=== PATIENT | male | born 1945 | race Caucasian/White ===

== ENCOUNTER → 2016-06-28 | Outpatient (CLI) | payer OTHER ==
[~2016-06-28] MED LIST: ACYC-251 PO; ASPCH81X PO; CHOL1000 PO; CHOL100010 PO; GLUCPOW41 PO; GLUCTAB7 PO; LORA-741 PO; LPR25 PO; METO25TA56 PO; OMEG10002 PO; OMEG10007 PO; WARF5TAB90 PO
[2016-06-28 13:20] LABS: ALT/SGPT 28 U/L (12-78); AST/SGOT 23 U/L (15-37); BLOOD UREA NITROGEN 19 mg/dl (7-18); BUN/CREATININE RATIO 19.2 (10-20); CALCIUM 9.1 mg/dl (8.5-10.1); CARBON DIOXIDE 28 mmol/L (21-32); CHLORIDE 106 mmol/L (98-107); CHOLESTEROL 161 mg/dl (0-200); CHOLESTEROL/HDL RATIO 2.9; GLUCOSE 93 mg/dl (70-99); HDL CHOLESTEROL 55 mg/dl; POTASSIUM 4.1 mmol/L (3.5-5.1); SODIUM 141 mmol/L (136-145)
[2016-06-28 13:27] LABS: FERRITIN 97.1 ng/ml (8.0-388.0); LDL CHOLESTEROL CALCULATED 93 mg/dl; TRIGLYCERIDES 64 mg/dl (0-150); VERY LOW DENSITY LIPOPROT CALC 13 mg/dl
--- NOTE | 2016-07-03 09:59 | CODING QUERY MEDICAL NECESSITY ---
SUPPORTING DIAGNOSIS NEEDED A supporting diagnosis is required for the test/procedure performed on this patient in order for us to be reimbursed by the patient's insurance. Please provide a supporting diagnosis for the following test/procedure listed below next to the test name along with your signature. *If there is no additional diagnosis for this patient that would support the following test/procedure please document that below next to the test/procedure. Test(s)/Procedure(s) that require a supporting diagnosis: * VITAMIN B-12 LEVEL DIAGNOSIS: * DOS: 06/28/16 Provider Signature: Date: Thank you Moni Leigh Health Information Management Once completed, please kindly fax back to [phone] For questions please call [phone]
== END | disposition home or self-care (01) ==
LOC: C.LAB1850 11:48
PROVIDERS: ATTEND Internal Medicine
DX: E78.5 Hyperlipidemia, unspecified (principal); E83.119 Hemochromatosis, unspecified; I48.91 Unspecified atrial fibrillation; Z12.5 Encounter for screening for malignant neoplasm of prostate; R94.02 Abnormal brain scan; R00.2 Palpitations

== ENCOUNTER → 2017-01-30 | Outpatient (CLI) | payer OTHER ==
--- NOTE | 2017-01-30 15:02 | DIAGNOSTIC IMAGING REPORT ---
RIGHT WRIST 4 VIEWS HISTORY: ACUTE WRIST PAIN Right COMPARISON: None. FINDINGS: There is no fracture or dislocation. Mild soft tissue swelling. Chondrocalcinosis. Severe cartilage space narrowing with [id number] articulation at the radiocarpal joint consistent with degenerative change. There is scapholunate dissociation. A few intra-articular loose bodies are likely due to chronic change or old injury. The largest measures 9 mm adjacent to the distal radius. IMPRESSION: No acute fracture or dislocation within the right wrist. Mild soft tissue swelling. Chronic/degenerative changes described above. Electronically signed by: Bertram Fitzpatrick M.D. 01/30/2017 3:00 PM Dictated Date/Time: 01/30/2017 2:58 PM
--- NOTE | 2017-01-30 15:10 | DIAGNOSTIC IMAGING REPORT ---
LEFT WRIST MIN 3 VIEWS ROUTINE HISTORY: 71 years-old Male ACUTE WRIST PAIN acute left-sided wrist pain and weakness without reported trauma. COMPARISON: Right wrist radiographs of same day TECHNIQUE: 3 views of the left wrist. FINDINGS: Widening of the scapholunate interval, 5 mm is noted with severe radiocarpal joint space narrowing. 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 Subcortical cystic changes are seen within the triquetrum and ulnar styloid. The bones are mildly demineralized. Chondrocalcinosis seen within the distribution of the TFCC. There is mild soft tissue signed about the wrist without acute fracture or dislocation identified. IMPRESSION: 1. Mild soft tissue swelling about the wrist without acute fracture or dislocation. 2. 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 3. Chondrocalcinosis of the TFCC. The above report was generated using voice recognition software. It may contain grammatical, syntax or spelling errors. Electronically signed by: Munir Otoole M.D. 01/30/2017 3:08 PM Dictated Date/Time: 01/30/2017 3:04 PM
== END | disposition home or self-care (01) ==
LOC: C.RAD1850 14:37
PROVIDERS: ATTEND Physician Assistant
DX: M25.531 Pain in right wrist (principal); M19.032 Primary osteoarthritis, left wrist; M11.232 Other chondrocalcinosis, left wrist

== ENCOUNTER 2017-02-05 23:07 | Emergency (ER) | payer OTHER ==
[~2017-02-05] VITALS: Ht 180.3 cm; Wt 81.4 kg
[~2017-02-05 23:07] MED LIST changes: -CHOL1000 PO; -GLUCTAB7 PO; -METO25TA56 PO; -OMEG10002 PO; -WARF5TAB90 PO
[2017-02-05 23:10] VITALS: TEMP 36.6; Ht 180.3 cm; Wt 81.4 kg
[2017-02-05] MEDS ORDERED: METOPROLOL TARTRATE 1 MG/ML VIAL IV STA (23:18)
[2017-02-05] MEDS ORDERED: SODIUM CHLORIDE 0.9% 1000ML 1,000 ML IV STA (23:18)
[2017-02-05] MEDS ORDERED: WARF5TAB90 PO (23:23)
[2017-02-05] MEDS ORDERED: CHOL1000 PO (23:23)
[2017-02-05] MEDS ORDERED: ACYC-251 PO (23:24)
[2017-02-05] MEDS ORDERED: METO25TA56 PO (23:25)
[2017-02-05] MEDS ORDERED: OMEG10002 PO (23:26)
[2017-02-05] MEDS ORDERED: GLUCTAB7 PO (23:26)
[2017-02-05 23:35] LABS: BASO % 0.3 %; BASO ABS # 0.02 K/uL (0-0.2); COMPLETE YES; EOS % 2.3 %; HEMATOCRIT 41.4 % (42-52); IG% 0.3 %; LYMPH % 31.5 %; LYMPH ABS # 2.07 K/uL (1.2-3.4); MEAN CELL VOLUME 87.2 fL (80-100); MEAN CORPUSCULAR HEMOGLOBIN 31.2 pg (25-34); MEAN CORPUSCULAR HGB CONC 35.7 g/dl (32-36); MEAN PLATELET VOLUME 10.7 fL (7.4-10.4); MONO % 8.1 %; NEUT % 57.5 %; PLATELET COUNT 117 K/uL (130-400); RED BLOOD COUNT 4.75 M/uL (4.7-6.1); WHITE BLOOD COUNT 6.57 K/uL (4.8-10.8)
[2017-02-05 23:51] LABS: INR 2.2 (0.9-1.1); PARTIAL THROMBOPLASTIN RATIO 1.5; PROTHROMBIN TIME (PATIENT) 24.8 SECONDS (9.0-12.0)
[2017-02-05 23:59] LABS: BLOOD UREA NITROGEN 27 mg/dl (7-18); BUN/CREATININE RATIO 29.1 (10-20); CALCIUM 8.7 mg/dl (8.5-10.1); CARBON DIOXIDE 27 mmol/L (21-32); CHLORIDE 109 mmol/L (98-107); CREATININE 0.93 mg/dl (0.60-1.40); GLUCOSE 93 mg/dl (70-99); MAGNESIUM 2.4 mg/dl (1.8-2.4); POTASSIUM 3.9 mmol/L (3.5-5.1); SODIUM 143 mmol/L (136-145)
--- NOTE | 2017-02-06 00:36 | EMERGENCY ROOM VISIT NOTE ---
History Report prepared by Rachael: Ayaan Kapadia Under the Supervision of: Dr. Power Barfield M.D. First contact with patient: 23:13 Chief Complaint: IRREGULAR HEARTBEAT Stated Complaint: AFIB,HEART FLUTTER History of Present Illness The patient is a 71 year old male who presents to the Emergency Room with complaints of persistent chest palpitations beginning two hours ago. He has a history of similar symptoms, but states that his symptoms typically resolve on their own. He has a known history of atrial flutter for which he is on Metoprolol and Warfarin. The patient also complains of shortness of breath. He denies any chest pain, cough, diarrhea, urinary symptoms, or abdominal pain. Source of History: patient Onset: two hours ago Position: chest Quality: other (palpitations) Timing: other (persistent) Associated Symptoms: + SOB, No cough, No chest pain, No diarrhea, No urinary symptoms Review of Systems See HPI for pertinent positives & negatives. A total of 10 systems reviewed and were otherwise negative. Past Medical & Surgical Medical Problems: (1) ATRIAL FIBRILLATION (2) Atrial fibrillation with rapid ventricular response (3) No Known Active Medical Problems (4) Paroxysmal a-fib (5) Radiofrequency ablation operation for arrhythmia (6) s/p ablation Surgical Problems: (1) H/O cardiac radiofrequency ablation Family History Cancer Diabetes mellitus Hypertension Social History Smoking Status: Never Smoker Alcohol Use: none Drug Use: none Marital Status: Occupation Status: retired Current/Historical Medications Scheduled Acyclovir (Zovirax), 800 MG PO BID Cholecalciferol (Vitamin D3), 1,000 UNIT PO DAILY Mhojqzqmrgs-Qxyttkcnqxc-Dkk C- (Glucosamine Chondroitin), 1 TAB PO DAILY Metoprolol Tartrate (Lopressor) (Lopressor), 12.5 MG PO BID [place]-3 Fatty Acids (Fish Oil), 1,000 MG PO DAILY Warfarin Sodium (Coumadin), 5 MG PO DAILY Allergies Coded Allergies: No Known Allergies (Verified , 02/05/17) Physical Exam Vital Signs Date Time Temp Pulse Resp B/P (MAP) Pulse Ox O2 Delivery O2 Flow Rate FiO2 02/06/17 00:56 67 14 122/76 94 02/06/17 00:47 67 19 95 02/06/17 00:46 103/70 02/06/17 00:32 66 17 97 02/06/17 00:31 103/69 02/06/17 00:17 70 16 97 02/06/17 00:16 98/67 02/06/17 00:02 72 19 98 02/06/17 00:01 91/78 02/05/17 23:47 70 20 98 02/05/17 23:46 116/74 02/05/17 23:32 69 23 96 02/05/17 23:27 70 15 98 02/05/17 23:24 83 02/05/17 23:22 77 16 96 Room Air 02/05/17 23:21 150 98/71 02/05/17 23:20 146 02/05/17 23:10 36.6 155 16 113/76 96 Room Air Physical Exam GENERAL: Patient is well appearing and in no acute distress. HEENT: No acute trauma, normocephalic atraumatic, mucous membranes moist, no nasal congestion, no scleral icterus. NECK: No stridor, no adenopathy, no meningismus, trachea is midline. LUNGS: No dyspnea. Clear to auscultation and equal bilaterally. No wheeze, no rhonchi. HEART: Tachycardic rate. No murmurs, rubs, gallops appreciated. ABDOMEN: Soft, nontender, bowel sounds positive, no masses appreciated, no peritonitis. BACK: No midline tenderness, no CVA tenderness EXTREMITIES: Normal motion all extremities, no cyanosis, no edema. NEUROLOGIC: Alert and oriented, no acute motor or sensory deficits, no focal weakness, cranial nerves grossly intact. SKIN: No rash, no jaundice, no diaphoresis. Medical Decision & Procedures ER Provider Diagnostic Interpretation: X ray results are stated below per my interpretation: Chest: 1 view: No infiltrate, no effusion, normal cardiac border. Laboratory Results 02/05/17 23:25 Red Blood Count 4.75, Mean Corpuscular Volume 87.2, Mean Corpuscular Hemoglobin 31.2, Mean Corpuscular Hemoglobin Concent 35.7, Mean Platelet Volume 10.7, Neutrophils (%) (Auto) 57.5, Lymphocytes (%) (Auto) 31.5, Monocytes (%) (Auto) 8.1, Eosinophils (%) (Auto) 2.3, Basophils (%) (Auto) 0.3, Neutrophils # (Auto) 3.78, Lymphocytes # (Auto) 2.07, Monocytes # (Auto) 0.53, Eosinophils # (Auto) 0.15, Basophils # (Auto) 0.02 02/05/17 23:25 Test 02/05/17 23:25 White Blood Count 6.57 K/uL (4.8-10.8) Red Blood Count 4.75 M/uL (4.7-6.1) Hemoglobin 14.8 g/dL (14.0-18.0) Hematocrit 41.4 % (42-52) Mean Corpuscular Volume 87.2 fL (80-100) Mean Corpuscular Hemoglobin 31.2 pg (25-34) Mean Corpuscular Hemoglobin Concent 35.7 g/dl (32-36) Platelet Count 117 K/uL (130-400) Mean Platelet Volume 10.7 fL (7.4-10.4) Neutrophils (%) (Auto) 57.5 % Lymphocytes (%) (Auto) 31.5 % Monocytes (%) (Auto) 8.1 % Eosinophils (%) (Auto) 2.3 % Basophils (%) (Auto) 0.3 % Neutrophils # (Auto) 3.78 K/uL (1.4-6.5) Lymphocytes # (Auto) 2.07 K/uL (1.2-3.4) Monocytes # (Auto) 0.53 K/uL (0.11-0.59) Eosinophils # (Auto) 0.15 K/uL (0-0.5) Basophils # (Auto) 0.02 K/uL (0-0.2) RDW Standard Deviation 42.1 fL (36.4-46.3) RDW Coefficient of Variation 13.1 % (11.5-14.5) Immature Granulocyte % (Auto) 0.3 % Immature Granulocyte # (Auto) 0.02 K/uL (0.00-0.02) Prothrombin Time 24.8 SECONDS (9.0-12.0) Prothromb Time International Ratio 2.2 (0.9-1.1) Activated Partial Thromboplast Time 38.3 SECONDS (21.0-31.0) Partial Thromboplastin Ratio 1.5 Anion Gap 7.0 mmol/L (3-11) Est Creatinine Clear Calc Drug Dose 77.6 ml/min Estimated GFR () 95.4 Estimated GFR (Non- 82.3 BUN/Creatinine Ratio 29.1 (10-20) Calcium Level 8.7 mg/dl (8.5-10.1) Magnesium Level 2.4 mg/dl (1.8-2.4) Troponin I < 0.015 ng/ml (0-0.045) Thyroid Stimulating Hormone (TSH) 2.350 uIu/ml (0.300-4.500) Medications Administered Medications (Trade) Dose Ordered Sig/Aaron Route Start Time Stop Time Status Last Admin Dose Admin Sodium Chloride 1,000 ml @ 999 mls/hr Q1H1M STAT IV 02/05/17 23:18 02/06/17 00:18 DC 02/05/17 23:21 999 MLS/HR ECG Indication: palpitations Rate (beats per minute): 155 Rhythm: atrial flutter Findings: no acute ischemic change, no ectopy Change: Repeat ECG reveals a normal sinus rhythm with a rate of 69 bpm. No acute ischemia or ectopy seen. Changes are new compared to previous ECG. ED Course 2314: The patient was evaluated in room A12B. A complete history and physical exam was performed. 2318: Ordered Sodium Chloride 1000 ml @ 999 mls/hr, Lopressor 5 mg IV. 2337: I reassessed the patient. His heart rate has decreased to 70 after receiving IV fluids. He feels back to normal. 0025: Reevaluated the patient. He feels fine and would like to go home. Discussed results and discharge instructions: he verbalized understanding and agreement. The patient is ready for discharge. Medical Decision Differential: NSR, SVT, PACs, PVCs, Cardiac Dysrhythmia, Endocrine Dysfunction, Electrolyte/Metabolic Abnormality, Pulmonary Embolism, Infectious, GI, amongst other pathologies entertained. 71 yr old male arrives with acute onset tachycardia this evening. Already took extra dose metoprolol F[employer]DER. EKG consistent with Flutter vs SVT. Ordered Lopressor IV and NSS bolus, however prior to lopressor started he reverted to NSR. Symptoms resolved and patient feeling well. Labs with mild dehydration and elevated BUN normal Cr. He is quite active and may have just overdone it. HR in 60s-70s and SBP in 90s. Notes this is normal vitals for him. Will hold on further Metoprolol as he has already taken extra dose this evening. Long history of paroxysmal aflutter and I do not feel that he requires admission, especially given minimal intervention necessary this evening as well as already on anti-coagulation. Reviewed symptoms requiring RTED. 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 Medication Reconcilliation Current Medication List: was personally reviewed by me Blood Pressure Screening Patient's blood pressure: Normal blood pressure Blood pressure disposition: Did not require urgent referral Impression Primary Impression: Atrial flutter with rapid ventricular response Additional Impression: Dehydration Scribe Attestation The scribe's documentation has been prepared under my direction and personally reviewed by me in its entirety. I confirm that the note above accurately reflects all work, treatment, procedures, and medical decision making performed by me. Departure Information Dispostion Home / Self-Care Referrals Pro,Edward Vogt M.D. (PCP) Patient Instructions ED Paroxysmal Atrial Flutter, My [facility] Problem Qualifiers
[2017-02-06 00:56] VITALS: BP 122/76; PULSE 67; O2SAT 94
--- NOTE | 2017-02-06 06:38 | DIAGNOSTIC IMAGING REPORT ---
CHEST ONE VIEW PORTABLE CLINICAL HISTORY: Palpitations COMPARISON STUDY: 12/06/2015 FINDINGS: The cardiac and mediastinal contours are normal. There is no evidence of focal pulmonary consolidation. There is no evidence of failure. No pleural effusions are visualized.[ IMPRESSION: No active disease in the chest. Electronically signed by: Napoleon Parmar M.D. 02/06/2017 6:36 AM Dictated Date/Time: 02/06/2017 6:36 AM
== END 2017-02-06 01:04 | disposition home or self-care (01) ==
LOC: C.EDB 23:08 → C.EDA 02-06 01:04
DX: I48.92 Unspecified atrial flutter (principal); E86.0 Dehydration; I48.91 Unspecified atrial fibrillation; Z79.01 Long term (current) use of anticoagulants; Z79.899 Other long term (current) drug therapy; Z80.9 Family history of malignant neoplasm, unspecified; Z83.3 Family history of diabetes mellitus; Z82.49 Family history of ischemic heart disease and other diseases of the circulatory system

== ENCOUNTER → 2017-03-21 | Outpatient (CLI) | payer OTHER ==
[~2017-03-21] MED LIST changes: +ACYC-223 PO; -ACYC-251 PO; -ASPCH81X PO; +CHOL1000 PO; -CHOL100010 PO; -GLUCPOW41 PO; +GLUCTAB7 PO; -LORA-741 PO; -LPR25 PO; +METO25TA56 PO; +OMEG10002 PO; -OMEG10007 PO; +WARF5TAB90 PO
[2017-03-21 13:04] LABS: URINE APPEARANCE CLEAR (CLEAR); URINE BILIRUBIN NEG (NEG); URINE COLOR YELLOW; URINE EPITHELIAL CELL AUTO 0-5 /lpf (0-5); URINE NITRITE NEG (NEG); URINE SPECIFIC GRAVITY 1.016 (1.000-1.030); UROBILINOGEN NEG (NEG)
[2017-03-21 13:09] LABS: MANUAL MICROSCOPIC REQUIRED? NO; REVIEW REQ? NO
== END | disposition home or self-care (01) ==
LOC: C.LAB1850 11:33
PROVIDERS: ATTEND Internal Medicine Rheumatology
DX: R82.90 Unspecified abnormal findings in urine (principal); E83.118 Other hemochromatosis

== ENCOUNTER 2017-07-12 17:32 | Observation (INO) | payer OTHER ==
[~2017-07-12] VITALS: Ht 180.3 cm; Wt 84.1 kg
[2017-07-12] MEDS ORDERED: METOPROLOL TARTRATE 1 MG/ML VIAL IV STA ×3 (17:56→18:55)
[2017-07-12] MEDS ORDERED: SODIUM CHLORIDE 0.9% 1000ML 1,000 ML IV STA ×2 (17:56→18:55)
[2017-07-12 18:11] LABS: BASO % 0.1 %; BASO ABS # 0.01 K/uL (0-0.2); EOS % 1.8 %; EOS ABS # 0.14 K/uL (0-0.5); HEMATOCRIT 42.7 % (42-52); HEMOGLOBIN 15.6 g/dL (14.0-18.0); IG# 0.02 K/uL (0.00-0.02); LYMPH % 20.9 %; MEAN CELL VOLUME 86.4 fL (80-100); MEAN CORPUSCULAR HEMOGLOBIN 31.6 pg (25-34); MEAN CORPUSCULAR HGB CONC 36.5 g/dl (32-36); MEAN PLATELET VOLUME 11.2 fL (7.4-10.4); MONO % 10.7 %; MONO ABS # 0.82 K/uL (0.11-0.59); NEUT % 66.2 %; NEUT ABS # 5.08 K/uL (1.4-6.5); PLATELET COUNT 114 K/uL (130-400); RED CELL DISTRIBUTION WIDTH CV 12.5 % (11.5-14.5); RED CELL DISTRIBUTION WIDTH SD 39.8 fL (36.4-46.3); WHITE BLOOD COUNT 7.67 K/uL (4.8-10.8)
[2017-07-12] MEDS ORDERED: HYDR200T5 PO (18:23)
[2017-07-12] MEDS ORDERED: CLB/200 PO (18:23)
[2017-07-12 18:28] LABS: INR 1.8 (0.9-1.1); PTT PATIENT 32.9 SECONDS (21.0-31.0)
[2017-07-12 18:48] LABS: BLOOD UREA NITROGEN 21 mg/dl (7-18); CARBON DIOXIDE 27 mmol/L (21-32); CREATININE 1.03 mg/dl (0.60-1.40); GLUCOSE 124 mg/dl (70-99); POTASSIUM 3.7 mmol/L (3.5-5.1); SODIUM 138 mmol/L (136-145)
[2017-07-12] MEDS ORDERED: ACYCLOVIR 400 MG TAB PO PRN (19:30)
[2017-07-12] MEDS ORDERED: DILTIAZEM BOLUS / DRIP IV STA ×2 (19:32→19:33)
[2017-07-12] MEDS ORDERED: DILTIAZEM HCL INJ 125 MG in DEXTROSE 5% 100ML IV PRN (19:45)
[2017-07-12] MEDS ORDERED: MoRPHine SULFATE 2 MG/ML CARP IV PRN (19:45)
[2017-07-12] MEDS ORDERED: MAGNESIUM HYDROXIDE SUSP 30 ML UDC PO PRN (19:45)
[2017-07-12] MEDS ORDERED: ACETAMINOPHEN 325 MG TAB PO PRN (19:45)
[2017-07-12] MEDS ORDERED: ALUMINUM/MAGNESIUM/SIMETH (MAALOX MAX) 30 ML UDC PO PRN (19:45)
[2017-07-12] MEDS ORDERED: ZOLPIDEM TARTRATE 5 MG TAB PO PRN (19:45)
[2017-07-12] MEDS ORDERED: ONDANSETRON INJ 2 MG/ML 2 ML VIAL IV PRN (19:45)
[2017-07-12] MEDS ORDERED: POLYETHYLENE (MIRALAX) 17 GM PACK PO PRN (19:45)
--- NOTE | 2017-07-12 20:04 | History and Physical ---
History & Physical Date & Time of Service: Jul 12, 2017 at 19:46 Chief Complaint: A- Fib, Irreglar Heartrate, Fast- Cardiac Hx Primary Care Physician: Edward Ward M.D. History of Present Illness Source: patient 72 y/o M Hx atrial fibrillation. The pt is normally in a sinus rhythm and presented to the ER as he felt he had reverted into atrial fibrillation. He denies any CP, SOB, N/V or diaphoresis. On arrival to the ER, atrial flutter with a rate of 150 was confirmed. His blood pressure has been stable and WNL. He is asymptomatic on admission. Past Medical/Surgical History 1) Atrial fibrillation - ablation 2002, 2007 2) HPL 3) Osteoarthritis - states he takes Plaquenil for osteoarthritis - insists he does not have a history of rheumatoid disease Family History Cancer Diabetes mellitus Hypertension Social History Smoking Status: Former Smoker Drug Use: none Marital Status: Housing status: lives with significant other Occupational Status: retired Immunizations History of Tetanus Vaccine?: NOT UTD History of Hepatitis B Vaccine: No Multi-Drug Resistant Organisms History of MDRO: No Allergies Coded Allergies: No Known Allergies (Verified , 07/12/17) Home Medications Scheduled Celecoxib (CeleBREX), 200 MG PO DAILY Cholecalciferol (Vitamin D3), 1,000 UNIT PO DAILY Cjzwnvcgqau-Mcnqoiehapd-Jjw C- (Glucosamine Chondroitin), 1 TAB PO DAILY Hydroxychloroquine Sulfate (Plaquenil), 200 MG PO BID Metoprolol Tartrate (Lopressor) (Lopressor), 12.5 MG PO TID [place]-3 Fatty Acids (Fish Oil), 1,000 MG PO DAILY Warfarin Sodium (Coumadin), 5 MG PO DAILY Scheduled PRN Acyclovir (Zovirax), 800 MG PO BID PRN for OUT BREAK Review of Systems Constitutional: No fever, No chills, No sweats Eyes: No worsening of vision, No eye pain ENT: No hearing loss, No unusual epistaxis, No nasal symptoms Respiratory: No cough, No wheezing Cardiovascular: + palpitations, No chest pain, No orthopnea, No PND Abdomen: No pain, No nausea, No vomiting Musculoskeletal: No joint pain Genitourinary - Male: No hematuria, No dysuria, No urinary urgency Neurologic: No memory loss Psychiatric: No depression symptoms Endocrine: No fatigue Hematologic / Lymphatic: No abnormal bleeding/bruising Integumentary: No rash Allergic / Immunologic: No environmental allergies Physical Exam Vital Signs Date Time Temp Pulse Resp B/P (MAP) Pulse Ox O2 Delivery O2 Flow Rate FiO2 07/12/17 19:15 153 18 118/83 97 Room Air 07/12/17 19:00 150 18 118/87 95 Room Air 07/12/17 19:00 136 126/86 07/12/17 18:47 149 18 126/86 97 Room Air 07/12/17 18:32 146 20 95 Room Air 07/12/17 18:30 127/86 07/12/17 18:28 147 128/89 07/12/17 18:27 149 15 99 Room Air 07/12/17 18:22 137 13 07/12/17 18:17 148 16 98 Room Air 07/12/17 18:15 128/89 07/12/17 18:12 149 18 98 Room Air 07/12/17 18:07 152 16 98 Room Air 07/12/17 18:05 124/93 07/12/17 18:02 150 21 98 Room Air 07/12/17 18:02 150 121/84 07/12/17 18:00 121/84 07/12/17 17:57 151 16 98 Room Air 07/12/17 17:53 150 25 132/97 98 Room Air 07/12/17 17:53 98 Room Air 07/12/17 17:53 148 07/12/17 17:52 150 18 98 07/12/17 17:51 132/97 07/12/17 17:38 36.7 151 16 122/72 97 Room Air General Appearance: WD/WN, no apparent distress Head: normocephalic Eyes: normal inspection ENT: normal ENT inspection, pharynx normal Neck: supple, no JVD Respiratory/Chest: chest non-tender, lungs clear, normal breath sounds Cardiovascular: no edema, no gallop, + tachycardia Abdomen/GI: normal bowel sounds, non tender, soft Back: normal inspection, no CVA tenderness Extremities/Musculoskelatal: normal inspection, no calf tenderness, normal capillary refill, no pedal edema, normal range of motion Neurologic/Psych: pocket creaser II-XII nml as tested, no motor/sensory deficits, alert, oriented x 3 Skin: normal color Diagnostics Laboratory Results Results Past 24 Hours Test 07/12/17 17:54 07/12/17 19:42 Range/Units White Blood Count 7.67 4.8-10.8 K/uL Red Blood Count 4.94 4.7-6.1 M/uL Hemoglobin 15.6 14.0-18.0 g/dL Hematocrit 42.7 42-52 % Mean Corpuscular Volume 86.4 80-100 fL Mean Corpuscular Hemoglobin 31.6 25-34 pg Mean Corpuscular Hemoglobin Concent 36.5 32-36 g/dl Platelet Count 114 130-400 K/uL Mean Platelet Volume 11.2 7.4-10.4 fL Neutrophils (%) (Auto) 66.2 % Lymphocytes (%) (Auto) 20.9 % Monocytes (%) (Auto) 10.7 % Eosinophils (%) (Auto) 1.8 % Basophils (%) (Auto) 0.1 % Neutrophils # (Auto) 5.08 1.4-6.5 K/uL Lymphocytes # (Auto) 1.60 1.2-3.4 K/uL Monocytes # (Auto) 0.82 0.11-0.59 K/uL Eosinophils # (Auto) 0.14 0-0.5 K/uL Basophils # (Auto) 0.01 0-0.2 K/uL RDW Standard Deviation 39.8 36.4-46.3 fL RDW Coefficient of Variation 12.5 11.5-14.5 % Immature Granulocyte % (Auto) 0.3 % Immature Granulocyte # (Auto) 0.02 0.00-0.02 K/uL Prothrombin Time 18.7 9.0-12.0 SECONDS Prothromb Time International Ratio 1.8 0.9-1.1 Activated Partial Thromboplast Time 32.9 21.0-31.0 SECONDS Partial Thromboplastin Ratio 1.3 Sodium Level 138 136-145 mmol/L Potassium Level 3.7 3.5-5.1 mmol/L Chloride Level 103 98-107 mmol/L Carbon Dioxide Level 27 21-32 mmol/L Anion Gap 8.0 3-11 mmol/L Blood Urea Nitrogen 21 7-18 mg/dl Creatinine 1.03 0.60-1.40 mg/dl Est Creatinine Clear Calc Drug Dose 69.0 ml/min Estimated GFR () 83.7 Estimated GFR (Non- 72.2 BUN/Creatinine Ratio 20.5 10-20 Random Glucose 124 70-99 mg/dl Calcium Level 9.0 8.5-10.1 mg/dl EKG Atrial flutter - rate 150 Impression Assessment and Plan 72 y/o M Hx OA, atrial fibrillation. The pt is normally in a sinus rhythm and presented to the ER as he felt he had reverted into atrial fibrillation. He denies any CP, SOB, N/V or diaphoresis. On arrival to the ER, atrial flutter with a rate of 150 was confirmed. His blood pressure has been stable and WNL. He is asymptomatic on admission. 1) Atrial flutter - Assigned to telemetry, placed on a Cardizem drip, cardiology aware and may chose to cardiovert the pt AM. Pt is anticoagulated with Coumadin. 2) Osteoarthritis - would consider discontinuation of Plaquenil if he is prescribed an antiarrhythmic. Full code - Coumadin prophylaxis Total time for this admit including review of labs, meds, imaging, records, EKG - discussion with pt and ER attending - 35 min Level of Care Telemetry Resuscitation Status FULL RESUSCITATION VTE Prophylaxis VTE Risk Assessment Done? Y/N: Yes Risk Level: Moderate Given or contraindicated: Warfarin (Coumadin)
--- NOTE | 2017-07-12 20:11 | EMERGENCY ROOM VISIT NOTE ---
History First contact with patient: 17:56 Chief Complaint: TACHYCARDIA Stated Complaint: A- FIB, IRREGLAR HEARTRATE, FAST- CARDIAC HX Nursing Triage Summary: Pt states, "I started out in a.fib. I think it switched to flutter. Normally I can sit it out in about 40 mins. It's been three hours now." Denies cp. Mild sob. Lightheaded when standing. Denies n/v. Took double dose of lopressor this afternoon to try to get out of a.fib. History of Present Illness The patient is a 72 year old male who presents to the Emergency Room for evaluation of palpitations. Noted onset of flutter about 3 hours prior to arrival. Associated with just mild SHOB and a bit of lightheaded with standing. Paroxysmal Aflutter which periodically brings him in to ED if just waiting at home for half hour doesn't work. Denies chest pain, syncope, nausea , vomiting, fevers, chills leg swelling, back pain, abdominal pain nor other symptoms. Takes Coumadin chronically for this. Took Lopressor prior to arrival without improvement. Previously had both ablations and multiple medications attempted. Notes in past on Flecainide without improvement as well as Cardizem but thinks he had a mild rash at high dose but not sure if that was cause. Review of Systems See HPI for pertinent positives & negatives. A total of 10 systems reviewed and were otherwise negative. Past Medical/Surgical History Medical Problems: (1) ATRIAL FIBRILLATION (2) Atrial fibrillation with rapid ventricular response (3) Atrial flutter with rapid ventricular response (4) No Known Active Medical Problems (5) Paroxysmal a-fib (6) Radiofrequency ablation operation for arrhythmia (7) s/p ablation Surgical Problems: (1) H/O cardiac radiofrequency ablation Family History Cancer Diabetes mellitus Hypertension Social History Smoking Status: Former Smoker Alcohol Use: none Drug Use: none Marital Status: Occupation Status: retired Current/Historical Medications Scheduled Celecoxib (CeleBREX), 200 MG PO DAILY Cholecalciferol (Vitamin D3), 1,000 UNIT PO DAILY Matwjebxskn-Saogxzsrsno-Qas C- (Glucosamine Chondroitin), 1 TAB PO DAILY Hydroxychloroquine Sulfate (Plaquenil), 200 MG PO BID Metoprolol Tartrate (Lopressor) (Lopressor), 12.5 MG PO TID [place]-3 Fatty Acids (Fish Oil), 1,000 MG PO DAILY Warfarin Sodium (Coumadin), 5 MG PO DAILY Scheduled PRN Acyclovir (Zovirax), 800 MG PO BID PRN for OUT BREAK Physical Exam Vital Signs Date Time Temp Pulse Resp B/P (MAP) Pulse Ox O2 Delivery O2 Flow Rate FiO2 07/12/17 19:30 144 18 119/74 97 Room Air 07/12/17 19:15 153 18 118/83 97 Room Air 07/12/17 19:00 150 18 118/87 95 Room Air 07/12/17 19:00 136 126/86 07/12/17 18:47 149 18 126/86 97 Room Air 07/12/17 18:32 146 20 95 Room Air 07/12/17 18:30 127/86 07/12/17 18:28 147 128/89 07/12/17 18:27 149 15 99 Room Air 07/12/17 18:22 137 13 07/12/17 18:17 148 16 98 Room Air 07/12/17 18:15 128/89 07/12/17 18:12 149 18 98 Room Air 07/12/17 18:07 152 16 98 Room Air 07/12/17 18:05 124/93 07/12/17 18:02 150 21 98 Room Air 07/12/17 18:02 150 121/84 07/12/17 18:00 121/84 07/12/17 17:57 151 16 98 Room Air 07/12/17 17:53 150 25 132/97 98 Room Air 07/12/17 17:53 98 Room Air 07/12/17 17:53 148 07/12/17 17:52 150 18 98 07/12/17 17:51 132/97 07/12/17 17:38 36.7 151 16 122/72 97 Room Air Physical Exam GENERAL: Patient is well appearing and in no acute distress. HEENT: No acute trauma, normocephalic atraumatic, mucous membranes moist, no nasal congestion, no scleral icterus. NECK: No stridor, no adenopathy, no meningismus, trachea is midline. LUNGS: No dyspnea. Clear to auscultation and equal bilaterally. No wheeze, no rhonchi. HEART: Tachycardic at 150bpm. No murmurs, rubs, gallops appreciated. ABDOMEN: Soft, nontender, bowel sounds positive, no masses appreciated, no peritonitis. BACK: No midline tenderness, no CVA tenderness EXTREMITIES: Normal motion all extremities, no cyanosis, no edema. NEUROLOGIC: Alert and oriented, no acute motor or sensory deficits, no focal weakness, cranial nerves grossly intact. SKIN: No rash, no jaundice, no diaphoresis. Medical Decision & Procedures Laboratory Results 07/12/17 17:54 Red Blood Count 4.94, Mean Corpuscular Volume 86.4, Mean Corpuscular Hemoglobin 31.6, Mean Corpuscular Hemoglobin Concent 36.5, Mean Platelet Volume 11.2, Neutrophils (%) (Auto) 66.2, Lymphocytes (%) (Auto) 20.9, Monocytes (%) (Auto) 10.7, Eosinophils (%) (Auto) 1.8, Basophils (%) (Auto) 0.1, Neutrophils # (Auto ) 5.08, Lymphocytes # (Auto) 1.60, Monocytes # (Auto) 0.82, Eosinophils # (Auto ) 0.14, Basophils # (Auto) 0.01 07/12/17 17:54 Test 07/12/17 17:54 White Blood Count 7.67 K/uL (4.8-10.8) Red Blood Count 4.94 M/uL (4.7-6.1) Hemoglobin 15.6 g/dL (14.0-18.0) Hematocrit 42.7 % (42-52) Mean Corpuscular Volume 86.4 fL (80-100) Mean Corpuscular Hemoglobin 31.6 pg (25-34) Mean Corpuscular Hemoglobin Concent 36.5 g/dl (32-36) Platelet Count 114 K/uL (130-400) Mean Platelet Volume 11.2 fL (7.4-10.4) Neutrophils (%) (Auto) 66.2 % Lymphocytes (%) (Auto) 20.9 % Monocytes (%) (Auto) 10.7 % Eosinophils (%) (Auto) 1.8 % Basophils (%) (Auto) 0.1 % Neutrophils # (Auto) 5.08 K/uL (1.4-6.5) Lymphocytes # (Auto) 1.60 K/uL (1.2-3.4) Monocytes # (Auto) 0.82 K/uL (0.11-0.59) Eosinophils # (Auto) 0.14 K/uL (0-0.5) Basophils # (Auto) 0.01 K/uL (0-0.2) RDW Standard Deviation 39.8 fL (36.4-46.3) RDW Coefficient of Variation 12.5 % (11.5-14.5) Immature Granulocyte % (Auto) 0.3 % Immature Granulocyte # (Auto) 0.02 K/uL (0.00-0.02) Prothrombin Time 18.7 SECONDS (9.0-12.0) Prothromb Time International Ratio 1.8 (0.9-1.1) Activated Partial Thromboplast Time 32.9 SECONDS (21.0-31.0) Partial Thromboplastin Ratio 1.3 Anion Gap 8.0 mmol/L (3-11) Est Creatinine Clear Calc Drug Dose 69.0 ml/min Estimated GFR () 83.7 Estimated GFR (Non- 72.2 BUN/Creatinine Ratio 20.5 (10-20) Calcium Level 9.0 mg/dl (8.5-10.1) Troponin I < 0.015 ng/ml (0-0.045) Medications Administered Medications (Trade) Dose Ordered Sig/Aaron Route Start Time Stop Time Status Last Admin Dose Admin Metoprolol Tartrate (Lopressor Iv) 5 mg NOW STAT IV 07/12/17 17:56 07/12/17 17:57 DC 07/12/17 18:02 5 MG Sodium Chloride 1,000 ml @ 999 mls/hr Q1H1M STAT IV 07/12/17 17:56 07/12/17 18:56 DC 07/12/17 18:02 999 MLS/HR Metoprolol Tartrate (Lopressor Iv) 5 mg NOW STAT IV 07/12/17 18:21 07/12/17 18:22 DC 07/12/17 18:28 5 MG Metoprolol Tartrate (Lopressor Iv) 5 mg NOW STAT IV 07/12/17 18:55 07/12/17 18:56 DC 07/12/17 19:00 5 MG Sodium Chloride 1,000 ml @ 125 mls/hr Q8H STAT IV 07/12/17 18:55 07/12/17 21:51 DC 07/12/17 19:02 125 MLS/HR Medical Decision Differential: NSR, SVT, PACs, PVCs, Cardiac Dysrhythmia, Endocrine Dysfunction, Electrolyte/Metabolic Abnormality, Pulmonary Embolism, Infectious, GI, amongst other pathologies entertained. Head Trauma GCS Score: 15 Medication Reconcilliation Current Medication List: was personally reviewed by me Blood Pressure Screening Patient's blood pressure: Normal blood pressure Impression Primary Impression: Atrial flutter with rapid ventricular response Critical Care I have personally spent greater than 35 minutes of critical care time in the direct management of this patient. This was a life/limb threatening event. This includes time spent evaluating patient, direct bedside care, chart review, placing orders, interpretation of diagnostic studies, discussion with consultants, patient, and family members, as well as other required patient management activities. This 35 minutes is in excess of all separately billable procedures. Departure Information Referrals Pro,Edward Vogt M.D. (PCP) Patient Instructions My [facility]
[2017-07-12] MEDS ORDERED: HYDROXYCHLOROQUINE SULFATE 200 MG TAB PO SCH (21:00)
[2017-07-12 22:00] VITALS: BP 99/61; PULSE 55; TEMP 36.5; O2SAT 98; Ht 180.3 cm; Wt 84.1 kg
[2017-07-12] MEDS ORDERED: NSS + 20MEQ KCL 1000ML 1,000 ML IV SCH (22:30)
[2017-07-12] MEDS ORDERED: DIGOXIN IV ONE (23:00)
[2017-07-12] MEDS ORDERED: POTASSIUM CHLORIDE INJ 40 MEQ in SODIUM CHLORIDE 0.9% 1000ML 1,000 ML IV SCH (23:00)
[2017-07-12] MEDS: METOPROLOL TARTRATE 25 MG TAB PO SCH (23:34)
[2017-07-12 23:41] VITALS: BP 102/56; PULSE 145; TEMP 36.7; O2SAT 97
[2017-07-13] MEDS ORDERED: IV FLUIDS COMPLETED PRN (00:45)
[2017-07-13 01:04] VITALS: BP 98/63
[2017-07-13 04:52] VITALS: BP 95/57; PULSE 49; TEMP 36.4; O2SAT 98
[2017-07-13 07:58] VITALS: BP 96/51; PULSE 52; TEMP 36.5; O2SAT 96
[2017-07-13] MEDS: METOPROLOL TARTRATE 25 MG TAB PO SCH (08:23)
--- NOTE | 2017-07-13 10:32 | Cardiology Consultation ---
Cardiology Consultation Date of Consultation: Jul 13, 2017. Requesting Physician: Dr. James Reason for Consultation: Atrial flutter Pt evaluation today including: conversation w/ patient, conversation w/ family , physical exam, lab review, review of studies, review of inpatient medication list History of Present Illness This is a 72-year-old gentleman with a history of hyperlipidemia, hemochromatosis and paroxysmal atrial fibrillation for which he had ablation in [place] in 1998 and 2002. He has done relatively well over the years, but has been having increasing frequency of palpitations. For the most part his palpitations are brief, generally a few minutes, but they are becoming fairly frequent (he is difficult to pin down in terms of frequency but is probably a couple times a week based on what him and his decided), usually they resolve when he relaxes and sometimes takes an extra metoprolol. He was on antiarrhythmic therapy years ago, including flecainide prior to his ablation, but he has not been on flecainide since. He does take warfarin chronically. He presented to the emergency room on July 12, 2017 with palpitations. He noted the onset of palpitations about 3 hours prior to his arrival, he had mild shortness of breath and some lightheadedness with standing. Since his symptoms did not resolve in that amount of time he came into the emergency room. There he was noted to have atrial flutter with 2-1 AV block. He is on warfarin, although his level is somewhat subtherapeutic with an INR of 1.8 on arrival. He received intravenous metoprolol in the emergency room with little effect, he was started on intravenous diltiazem with some degree of control but he became hypotensive, he also received digoxin but the rate was still fast. He then converted to sinus rhythm shortly after midnight during the night. Today he feels well, he is back to normal as far as his symptoms go and is not having palpitations, lightheadedness or dizziness. Past Medical/Surgical History (1) ATRIAL FIBRILLATION Family History Cancer Diabetes mellitus Hypertension Social History Smoking Status: Unknown if Ever Smoked History of Alcohol Use: No Review of Systems Constitutional: No fever, No weight loss, No weakness Respiratory: No cough, No wheezing, No shortness of breath, No dyspnea on exertion Cardiac: + see HPI, + palpitations Abdomen: No pain, No nausea, No vomiting, No diarrhea, No GI bleeding Male : No urinary frequency, No nocturia more than once/night, No slowing stream, No sexual dysfunction Neurologic: No paralysis, No weakness, No numbness/tingling, No balance problems Heme: No abnormal bleeding/bruising, No clotting problems Endo: No fatigue Skin: No problem reported All Other Systems: Reviewed and Negative Allergies Coded Allergies: No Known Allergies (Verified , 07/12/17) Medications Current Inpatient Medications Medications (Trade) Dose Ordered Sig/Aaron Route Start Time Stop Time Status Last Admin Dose Admin Acyclovir (Zovirax Tab) 800 mg BID PRN PO 07/12/17 19:30 07/22/17 19:29 Metoprolol Tartrate (Lopressor Tab) 12.5 mg TID PO 07/12/17 21:00 08/11/17 20:59 07/12/17 23:34 12.5 MG Warfarin Sodium (Coumadin Tab) 5 mg DAILY@1600 PO 07/13/17 16:00 08/12/17 15:59 Acetaminophen (Tylenol Tab) 650 mg Q4H PRN PO 07/12/17 19:45 08/11/17 19:44 Al Hydrox/Mg Hydrox/Simethicone (Maalox Max Susp) 15 ml Q4H PRN PO 07/12/17 19:45 08/11/17 19:44 Magnesium Hydroxide (Milk Of Magnesia Susp) 30 ml Q12H PRN PO 07/12/17 19:45 08/11/17 19:44 Zolpidem Tartrate (Ambien Tab) 5 mg HSZ PRN PO 07/12/17 19:45 08/11/17 19:44 Ondansetron HCl (Zofran Inj) 4 mg Q6H PRN IV 07/12/17 19:45 08/11/17 19:44 Morphine Sulfate (MoRPHine SULFATE INJ) 2 mg Q30M PRN IV 07/12/17 19:45 07/26/17 19:44 Polyethylene (Miralax Powder Packet) 17 gm DAILY PRN PO 07/12/17 19:45 08/11/17 19:44 Miscellaneous (Iv Fluids Completed) 1 ea PRN PRN N/A 07/13/17 00:45 07/13/18 00:44 Physical Exam Vital Signs Past 12 Hours Date Time Temp Pulse Resp B/P (MAP) Pulse Ox O2 Delivery O2 Flow Rate FiO2 07/13/17 08:00 Room Air 07/13/17 07:58 36.5 52 16 96/51 (66) 96 Room Air 07/13/17 04:52 36.4 49 18 95/57 (70) 98 Room Air 07/13/17 04:00 Room Air 07/13/17 01:04 98/63 (75) 07/13/17 00:00 Room Air 07/12/17 23:41 36.7 145 18 102/56 (71) 97 Room Air 07/12/17 23:33 145 Constitutional: General Apperance: heathly-appearing Level of Distress: NAD Psychiatric: Mental Status: active & alert Head: normocephalic Eyes: EOM: EOMI ENMT: normal ENT inspection, hearing grossly normal Neck: supple, no masses Lungs: Respiratory effort: no dyspnea, good air movement Auscultation: breath sounds normal, no wheezing Cardiovascular: Heart Auscultation: RRR, no murmurs, no rubs, no gallops Peripheral Pulses: Bruits: none appreciated Abdomen: Bowel Sounds: normal Inspection & Palpation: soft, no tenderness, guarding & rebound, no masses Musculoskeletal: normal strength (5/5 throughout) Extremities: no edema Neurologic: Cranial Nerves: grossly intact Sensation: grossly intact Data Laboratory Results: Last 24 Hours Test 07/12/17 17:54 White Blood Count 7.67 K/uL Red Blood Count 4.94 M/uL Hemoglobin 15.6 g/dL Hematocrit 42.7 % Mean Corpuscular Volume 86.4 fL Mean Corpuscular Hemoglobin 31.6 pg Mean Corpuscular Hemoglobin Concent 36.5 g/dl Platelet Count 114 K/uL Mean Platelet Volume 11.2 fL Neutrophils (%) (Auto) 66.2 % Lymphocytes (%) (Auto) 20.9 % Monocytes (%) (Auto) 10.7 % Eosinophils (%) (Auto) 1.8 % Basophils (%) (Auto) 0.1 % Neutrophils # (Auto) 5.08 K/uL Lymphocytes # (Auto) 1.60 K/uL Monocytes # (Auto) 0.82 K/uL Eosinophils # (Auto) 0.14 K/uL Basophils # (Auto) 0.01 K/uL RDW Standard Deviation 39.8 fL RDW Coefficient of Variation 12.5 % Immature Granulocyte % (Auto) 0.3 % Immature Granulocyte # (Auto) 0.02 K/uL Prothrombin Time 18.7 SECONDS Prothromb Time International Ratio 1.8 Activated Partial Thromboplast Time 32.9 SECONDS Partial Thromboplastin Ratio 1.3 Sodium Level 138 mmol/L Potassium Level 3.7 mmol/L Chloride Level 103 mmol/L Carbon Dioxide Level 27 mmol/L Anion Gap 8.0 mmol/L Blood Urea Nitrogen 21 mg/dl Creatinine 1.03 mg/dl Est Creatinine Clear Calc Drug Dose 69.0 ml/min Estimated GFR () 83.7 Estimated GFR (Non- 72.2 BUN/Creatinine Ratio 20.5 Random Glucose 124 mg/dl Calcium Level 9.0 mg/dl Troponin I < 0.015 ng/ml EKG: His presenting electrocardiogram shows a rapid narrow complex tachycardia at a rate of 150 bpm, I believe it is a 2-1 tachycardia although I cannot be certain. Does not appear to be typical atrial flutter. Telemetry reviewed: Atrial flutter with rapid ventricular response until shortly after midnight, then sinus rhythm and sinus bradycardia Assessment & Plan 1. Atrial flutter: I believe his current rhythm is a 2-1 atrial flutter, it is likely atypical but I cannot be sure from the tracings I have. If it is atypical and may involve his atrial scar which would make it more difficult to ablate. I discussed various options with him which include an attempt at ablation, medications (specifically antiarrhythmic medications) or just watchful waiting since he does not have much difficulty with prolonged episodes. He also tolerates relatively well. He would prefer to continue with conservative treatment. He should continue anticoagulation. I would recommend sending him home on his current medical regimen. Thank you for allowing me to participate in his care.
[2017-07-13 12:19] VITALS: BP 103/63; PULSE 61; TEMP 36.5; O2SAT 95
--- NOTE | 2017-07-13 12:40 | Discharge Instructions ---
Discharge Instructions Date of Service Jul 13, 2017. Admission Reason for Admission: Atrial Flutter With Rvr Discharge Discharge Diagnosis / Problem: atrial fibrillation/flutter - now converted Discharge Goals Goal(s): Diagnostic testing, Therapeutic intervention Activity Recommendations Activity Limitations: resume your previous activity . Instructions / Follow-Up Instructions / Follow-Up your INR was slightly low at 1.8 -- typically this corrects as coumadin ( warfarin) is a medication that has a lot of "wobble" to its ranges -- for now stay on the same dosing, but have your numbers rechecked in a few days Current Hospital Diet Patient's current hospital diet: AHA Diet (Heart Healthy) Discharge Diet Recommended Diet: AHA Diet (Heart Healthy) Pending Studies Studies pending at discharge: no Medical Emergencies . Who to Call and When: Medical Emergencies: If at any time you feel your situation is an emergency, please call 911 immediately. . Non-Emergent Contact Non-Emergency issues call your: Primary Care Provider, [employer] . . "Provider Documentation" section prepared by Russell Machado. . VTE Core Measure Inpt VTE Proph given/why not?: Warfarin (Coumadin)
[2017-07-13 13:21] VITALS: BP 103/63; PULSE 61; TEMP 36.5; O2SAT 95
[2017-07-13] MEDS ORDERED: WARFARIN SOD 5 MG TAB PO SCH (16:00)
--- NOTE | 2017-07-13 17:32 | Discharge Summary ---
Discharge Summary Date of Service Jul 13, 2017. Discharge Summary Admission Date: Jul 12, 2017 at 19:38 Discharge Date: Jul 13, 2017 Discharge Disposition: Home Principal Diagnosis: aflutter, RVR - spontaneously converted to NSR Immunizations: History of Tetanus Vaccine?: NOT UTD History of Hepatitis B Vaccine: No Procedures: Last 24 Hours Test 07/12/17 17:54 White Blood Count 7.67 K/uL Red Blood Count 4.94 M/uL Hemoglobin 15.6 g/dL Hematocrit 42.7 % Mean Corpuscular Volume 86.4 fL Mean Corpuscular Hemoglobin 31.6 pg Mean Corpuscular Hemoglobin Concent 36.5 g/dl Platelet Count 114 K/uL Mean Platelet Volume 11.2 fL Neutrophils (%) (Auto) 66.2 % Lymphocytes (%) (Auto) 20.9 % Monocytes (%) (Auto) 10.7 % Eosinophils (%) (Auto) 1.8 % Basophils (%) (Auto) 0.1 % Neutrophils # (Auto) 5.08 K/uL Lymphocytes # (Auto) 1.60 K/uL Monocytes # (Auto) 0.82 K/uL Eosinophils # (Auto) 0.14 K/uL Basophils # (Auto) 0.01 K/uL RDW Standard Deviation 39.8 fL RDW Coefficient of Variation 12.5 % Immature Granulocyte % (Auto) 0.3 % Immature Granulocyte # (Auto) 0.02 K/uL Prothrombin Time 18.7 SECONDS Prothromb Time International Ratio 1.8 Activated Partial Thromboplast Time 32.9 SECONDS Partial Thromboplastin Ratio 1.3 Sodium Level 138 mmol/L Potassium Level 3.7 mmol/L Chloride Level 103 mmol/L Carbon Dioxide Level 27 mmol/L Anion Gap 8.0 mmol/L Blood Urea Nitrogen 21 mg/dl Creatinine 1.03 mg/dl Est Creatinine Clear Calc Drug Dose 69.0 ml/min Estimated GFR () 83.7 Estimated GFR (Non- 72.2 BUN/Creatinine Ratio 20.5 Random Glucose 124 mg/dl Calcium Level 9.0 mg/dl Troponin I < 0.015 ng/ml Consultations: cardiology Medication Reconciliation Continued Medications: Acyclovir (Zovirax) 800 Mg Tab 800 MG PO BID PRN for OUT BREAK Celecoxib (CeleBREX) 200 Mg Cap 200 MG PO DAILY, CAP Cholecalciferol (Vitamin D3) 1,000 Unit Tab 1000 UNIT PO DAILY, 3 Refills Azgybgselea-Wjsdhoaymmv-Qkn C- (Glucosamine Chondroitin) 1 Tab Tab 1 TAB PO DAILY Hydroxychloroquine Sulfate (Plaquenil) 200 Mg Tab 200 MG PO BID, TAB Metoprolol Tartrate (Lopressor) (Lopressor) 25 Mg Tab 12.5 MG PO TID 1/2 tablet dose [place]-3 Fatty Acids (Fish Oil) 1,000 Mg Cap 1000 MG PO DAILY Warfarin Sodium (Coumadin) 5 Mg Tab 5 MG PO DAILY Discharge Exam Physical Exam: General Appearance: no apparent distress Eyes: EOMI ENT: hearing grossly normal Neck: trachea midline Respiratory/Chest: no respiratory distress, no accessory muscle use Extremities: normal inspection 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 Discharge Instructions Please refer to the electronic Patient Visit Report (Discharge Instructions) for additional information. Additional Copies To Edward Amaya M.D.; Edward Ward M.D.
== END 2017-07-13 13:45 | disposition home or self-care (01) ==
LOC: C.EDB 17:34 → C.2T 19:38 → ENRESERV 21:22
PROVIDERS: ADMIT Internal Medicine; ATTEND Internal Medicine
DX: I48.92 Unspecified atrial flutter (principal); M19.90 Unspecified osteoarthritis, unspecified site; Z79.01 Long term (current) use of anticoagulants; Z79.899 Other long term (current) drug therapy; Z80.9 Family history of malignant neoplasm, unspecified; Z82.49 Family history of ischemic heart disease and other diseases of the circulatory system; Z83.3 Family history of diabetes mellitus

== ENCOUNTER → 2017-07-24 | Outpatient (CLI) | payer OTHER ==
[~2017-07-24] MED LIST changes: +CLB/200 PO; +HYDR200T5 PO
[2017-07-24 10:04] LABS: ALBUMIN 3.5 gm/dl (3.4-5.0); ALT/SGPT 27 U/L (12-78); BLOOD UREA NITROGEN 21 mg/dl (7-18); CALCIUM 8.6 mg/dl (8.5-10.1); CARBON DIOXIDE 28 mmol/L (21-32); CHOLESTEROL 131 mg/dl (0-200); CREATININE 0.89 mg/dl (0.60-1.40); GLUCOSE 84 mg/dl (70-99); POTASSIUM 3.8 mmol/L (3.5-5.1); SODIUM 140 mmol/L (136-145)
[2017-07-24 10:08] LABS: ALKALINE PHOSPHATASE 43 U/L (45-117); AST/SGOT 26 U/L (15-37); LDL CHOLESTEROL CALCULATED 78 mg/dl; TOTAL PROTEIN 6.5 gm/dl (6.4-8.2)
== END | disposition home or self-care (01) ==
LOC: C.LAB 18:07
PROVIDERS: ATTEND Internal Medicine
DX: E78.5 Hyperlipidemia, unspecified (principal); E83.119 Hemochromatosis, unspecified; Z12.5 Encounter for screening for malignant neoplasm of prostate

== ENCOUNTER → 2018-01-06 | Outpatient (CLI) | payer OTHER | END | disposition home or self-care (01) | LOC: C.LAB1850 11:51 | PROVIDERS: ATTEND Internal Medicine | DX: N39.0 Urinary tract infection, site not specified (principal) ==

== ENCOUNTER → 2018-01-10 | Outpatient (CLI) | payer OTHER ==
--- NOTE | 2018-01-10 09:29 | DIAGNOSTIC IMAGING REPORT ---
(LYNN/BLAD)RETROPERITON COMP CLINICAL HISTORY: 72 years-old Male presenting with R39.9 Urinary symptom or sign Concern of kidney [id number]. TECHNIQUE: Real-time grayscale and limited color Doppler ultrasound imaging of the kidneys and bladder was performed. COMPARISON: 07/20/2014. FINDINGS: Right kidney: Normal echogenicity of renal parenchyma. Right kidney measures 9.9 cm. No hydronephrosis. No convincing evidence of calculus or mass. Left kidney: Normal echogenicity of renal parenchyma. Left kidney measures 10.1 cm. No hydronephrosis. No convincing evidence of calculus or mass. Bladder: Normal. Bilateral ureteral jets present. Other: Enlarged prostate. IMPRESSION: 1. Essentially normal renal ultrasound apart from prostatomegaly. No obstruction. Electronically signed by: Twin Fermin M.D. 01/10/2018 9:28 AM Dictated Date/Time: 01/10/2018 9:27 AM
== END | disposition home or self-care (01) ==
LOC: C.ULTR 08:51
PROVIDERS: ATTEND Physician Assistant
DX: R39.9 Unspecified symptoms and signs involving the genitourinary system (principal)

== ENCOUNTER → 2018-01-16 | Outpatient (CLI) | payer OTHER | END | disposition home or self-care (01) | LOC: C.PATHSPEC 17:39 | PROVIDERS: ATTEND Urology | DX: R30.0 Dysuria (principal) ==